=== PATIENT | female | born 2000 | race Caucasian/White ===

== ENCOUNTER 2021-07-06 12:56 | Emergency (ER) | payer BC ==
[2021-07-06 13:14] VITALS: BP 106/70; PULSE 75; TEMP 98.2; BMI 20.3
[2021-07-06] MEDS ORDERED: SODIUM CHLORIDE 1,000 ML IV STA (14:08)
[2021-07-06] MEDS ORDERED: METOCLOPRAMIDE HCL INJECTION 10 MG/2 ML VIAL IVPUSH ONE (14:08)
[2021-07-06] MEDS ORDERED: FLUCONAZOLE 150 MG TABLET PO ONE ×2 (14:15→14:51)
[2021-07-06] MEDS ORDERED: METOCLOPRAMIDE HCL INJECTION 10 MG/2 ML VIAL ONE (14:51)
[2021-07-06 15:07] LABS: URINE APPEARANCE CLEAR; URINE BILIRUBIN NEGATIVE (NEGATIVE); URINE COLOR YELLOW; URINE GLUCOSE (UA) NEGATIVE (NEGATIVE); URINE KETONE NEGATIVE (NEGATIVE); URINE LEUK ESTERASE NEGATIVE (NEGATIVE); URINE NITRITE NEGATIVE (NEGATIVE); URINE PROTEIN NEGATIVE (NEGATIVE); URINE UROBILINOGEN 0.2 mg/dL (0.2-1.0)
[2021-07-06 16:27] LABS: CALCIUM 10.1 mg/dL (8.5-10.1)
[2021-07-06 16:28] LABS: BLOOD UREA NITROGEN 9.5 mg/dL (7-18)
[2021-07-06 16:31] LABS: CREATININE 0.6 mg/dL (0.55-1.3)
[2021-07-06 16:32] LABS: BILIRUBIN,TOTAL 0.8 mg/dL (0.2-1)
[2021-07-06 16:33] LABS: TOT PROT 7.7 g/dl (6.4-8.2)
[2021-07-06 16:35] LABS: BASO % 0.4 % (0-2.0); EOS % 2.6 % (0-4.5); HEMATOCRIT 38.5 % (32.4-45.2); HEMOGLOBIN 13.1 GM/dL (10.7-15.3); LYMPH % 31.6 % (8-40); MCH 29.6 pg (25.7-33.7); MCHC 33.9 g/dl (32.0-36.0); MEAN CELL VOLUME 87.1 fl (80-96); MEAN PLT VOLUME 9.4 fl (7.5-11.1); NEUT % 57.4 % (42.8-82.8); PLATELET COUNT 232 10^3/uL (134-434); RBC 4.41 M/mm3 (3.60-5.2); RDW 12.8 % (11.6-15.6); WHITE BLOOD COUNT 6.9 K/mm3 (4.0-10.0)
== END 2021-07-06 17:30 | disposition home or self-care (01) ==
LOC: JERFT 12:56
PROC: 3E033NZ Introduction of Analgesics, Hypnotics, Sedatives into Peripheral Vein, Percutaneous Approach (ICD-10-PCS; principal; 2021-07-06)
PROC: 3E0337Z Introduction of Electrolytic and Water Balance Substance into Peripheral Vein, Percutaneous Approach (ICD-10-PCS; 2021-07-06)
DX: R11.2 Nausea with vomiting, unspecified (principal)
CPT/HCPCS: 36415; 80053; 81003; 83690; 85025; 87070; 87086; 87205; 87491; 87591; 99284-25; C9803; U0003; U0005